=== PATIENT | female | born 2000 | race Caucasian/White ===

== ENCOUNTER 2022-06-15 23:34 | Emergency (ER) | payer SELFPAY ==
[~2022-06-15] VITALS: Ht 170.2 cm; Wt 87.1 kg
[2022-06-15 23:38] VITALS: BP 93/52
--- NOTE | 2022-06-15 23:38 | NUR ---
[facility] ALS TO BED #3
[2022-06-15] MEDS ORDERED: ONDANSETRON 4 MG/2 ML VIAL IVP ONE (23:55)
[2022-06-15] MEDS ORDERED: NACL 0.9% 1,000 ML IV ONE (23:55)
--- NOTE | 2022-06-15 23:55 | NUR ---
pt continuing to dry heave and vomit. asked ER MD Godfrey for zofran orders and bolus for patient.
[2022-06-16] MEDS ORDERED: ONDANSETRON 4 MG/2 ML VIAL IVP ONE (00:45)
--- NOTE | 2022-06-16 00:53 | NUR ---
DR NATH EXAMINING PT
--- NOTE | 2022-06-16 02:22 | NUR ---
at this time, pt is quiet. sleeping in a position. pt appears to show no s/s o distress at this moment.
[2022-06-16 03:03] VITALS: BP 95/59
--- NOTE | 2022-06-16 03:03 | NUR ---
Patient discharged with v/s stable. Written and verbal after care instructions given and explained. Patient verbalized understanding. Ambulatory with steady gait. All questions addressed prior to discharge. Advised to follow up with PMD.
--- NOTE | 2022-06-16 03:09 | NUR ---
PT WAS ABLE TO STAND AND CHANGE INTO DISPOSABLE GOWN. MARITZA VILLALBA MADE AWARE.
--- NOTE | 2022-06-16 03:11 | NUR ---
per pt friend will pick pt up. awaiting for ride.
--- NOTE | 2022-06-16 04:16 | NUR ---
assisted patient out into the lobby.
== END 2022-06-16 03:03 | disposition home or self-care (01) ==
LOC: MED 23:34
DX: F10.129 Alcohol abuse with intoxication, unspecified (principal); R11.2 Nausea with vomiting, unspecified; Y90.9 Presence of alcohol in blood, level not specified
CPT/HCPCS: 96361; 96374; 96376; 99284; J2405; J7030